=== PATIENT | male | born 1965 | race American Indian/Alaskan Native ===

== ENCOUNTER 2016-08-18 13:53 | Outpatient (CLI) | payer OTHER ==
--- NOTE | 2016-08-19 10:29 | Ultrasound Report ---
Abdominal sonogram: History: Abnormal LFTs. Findings: Aortic diameter 2.1 cm. Normal liver. No intrahepatic or extrahepatic duct dilatation. Common bile duct diameter 2.7 mm. Gallbladder wall thickness 1.4 mm. 2 non-mobile echogenic foci measuring 2.4 mm and 2.2 mm identified within the gallbladder probably polyps and less likely calculi.. Right kidney 9.7 x 3.8 x 4.3 cm. Cortical thickness 1.3 cm. Left kidney 10.6 x 4.6 x 5.2 cm. Cortical thickness 1.4 cm. Spleen measures 7.2 cm. Pancreas obscured by bowel gas. Impression: 2 non-mobile echogenic foci within the gallbladder probably represents polyp and less likely calculi.
== END 2016-08-18 13:54 | disposition home or self-care (01) ==
LOC: US 13:53
PROVIDERS: ATTEND Internal Medicine Gastroenterology
DX: B18.1 Chronic viral hepatitis B without delta-agent (principal); R94.5 Abnormal results of liver function studies
CPT/HCPCS: 76700